=== PATIENT | female | born 1945 | race African-American/Black ===

== ENCOUNTER 2017-02-10 08:56 | Outpatient (CLI) | payer MEDICARE ==
[2017-02-10 12:32] LABS: Hemoglobin A1c 6.2 % (4.0-6.0)
== END 2017-02-10 08:57 | disposition home or self-care (01) ==
LOC: NAVSJIPCSP 08:56
PROVIDERS: ATTEND Internal Medicine
DX: E11.59 Type 2 diabetes mellitus with other circulatory complications (principal)
CPT/HCPCS: 36415; 83036

== ENCOUNTER 2017-02-25 10:08 | Outpatient (CLI) | payer MEDICARE ==
--- NOTE | 2017-02-25 14:03 | RAD ---
FOUR VIEWS LEFT RIB SERIES: Indication: Left sided rib pain. FINDINGS: No pneumothorax or contusion is demonstrated. No displaced left sided rib fracture is evident. IMPRESSION: No displaced left sided rib fracture. POS: [facility]
== END 2017-02-25 10:09 | disposition home or self-care (01) ==
LOC: NAV RAD 10:08
PROVIDERS: ATTEND Internal Medicine
DX: R07.89 Other chest pain (principal)

== ENCOUNTER 2017-05-06 09:37 | Outpatient (CLI) | payer MEDICARE ==
[2017-05-06 12:27] LABS: #Basophils 0.1 thou/uL (0.0-0.2); #Eosinphils 0.1 thou/uL (0.0-0.7); #Lymphocytes 2.3 thou/uL (1.20-3.40); #Monocytes 0.7 thou/uL (0.11-0.59); #Neutrophils 3.7 thou/uL (1.40-6.50); %Basophils 1.5 % (0.0-1.0); %Eosinophils 1.7 % (0.0-10.0); %Lymphocytes 32.8 % (21.0-51.0); %Monocytes 10.4 % (0.0-10.0); %Neutrophils 53.7 % (42.0-75.0); Hemoglobin 12.3 g/dL (12.0-16.0); Mean Corpuscular Hemoglobin 31.7 pg (27.0-31.0); Mean Corpuscular Volume 96.1 fl (81.0-99.0); Mean Platelet Volume 5.8 fL (7.4-10.4); Platelet Count 235 thou/uL (130-400); RBC Distribution Width 11.9 % (11.5-14.5); Red Blood Cell (RBC) Count 3.88 mill/uL (4.20-5.40); White Blood Cell (WBC) Count 6.9 thou/uL (4.8-10.8)
[2017-05-06 12:45] LABS: ALT (SGPT) 13 U/L (8-55); AST (SGOT) 18 U/L (5-34); Albumin 3.8 g/dL (3.4-4.8); Alkaline Phosphatase 73 U/L (40-150); Anion Gap 14 mmol/L (10-20); BUN (Urea Nitrogen) 15 mg/dL (9.8-20.1); Calc. Creatinine Clearance 0 mL/min (70-130); Calcium 8.7 mg/dL (7.8-10.44); Carbon Dioxide 25 mmol/L (23-31); Cardiac Risk 3.6 (Less than 4.5); Chloride 105 mmol/L (98-107); Cholesterol 174 mg/dl (< 200 Desired); Estimated GFR-MDRD Greater than 90; Globulin 2.8 g/dL (2.4-3.5); Glucose 135 mg/dL (83-110); HDL Cholesterol 48 mg/dL (>60 Neg Risk); LDL Cholesterol, Calculated 110 mg/dL; Potassium 4.4 mmol/L (3.5-5.1); Protein, Total 6.6 g/dL (6.0-8.3); Sodium 140 mmol/L (136-145); Triglycerides 78 mg/dL (Less than 150)
[2017-05-06 13:07] LABS: Hemoglobin A1c 6.2 % (4.0-6.0)
[2017-05-06 17:59] LABS: Creatinine, Urine 79.38 mg/dL (47-110); Microalbumin Urine Less than 1.0 mg/dL (0.5-50.0); Microalbumin/Creat Ratio 12.6 mg/g (Less than 30)
== END 2017-05-06 09:38 | disposition home or self-care (01) ==
LOC: NAVSJIPCSP 09:37
PROVIDERS: ATTEND Internal Medicine
DX: E78.5 Hyperlipidemia, unspecified (principal); E11.59 Type 2 diabetes mellitus with other circulatory complications; I10 Essential (primary) hypertension; Z95.1 Presence of aortocoronary bypass graft
CPT/HCPCS: 36415; 80053; 80061; 82043; 83036; 83880; 84443; 85025

== ENCOUNTER 2017-07-05 09:55 | Outpatient (CLI) | payer MEDICARE ==
--- NOTE | 2017-07-05 11:13 | RAD ---
THREE VIEWS LUMBAR SPINE: 07/05/2017 HISTORY: Low back pain with right hip radiculopathy. COMPARISON: None. FINDINGS: There is prominent facet hypertrophy at L3-L4, L4-L5, and L5-S1. There is disk space narrowing with degenerative endplate change and anterior osteophyte formation at L4-L5 and at L5-S1. There is ath erosclerotic calcification of the abdominal aorta. There is no acute fracture seen. IMPRESSION: Multilevel lower lumbar spine degenerative change with no acute osseous abnormality. Recommend MRI if radicular symptoms persist. POS: [facility]
--- NOTE | 2017-07-05 11:31 | RAD ---
THORACIC SPINE 3 VIEWS: HISTORY: Back pain after falling out of her rocker last week. FINDINGS: Degenerative changes are seen in the thoracic spine. No acute fracture or subluxation is identified . If there is focal tenderness or high clinical suspicion for injury to the thoracic spine, further ev aluation with MRI or CT scan would be helpful. POS: [facility]
== END 2017-07-05 09:56 | disposition home or self-care (01) ==
LOC: NAV RAD 09:55
DX: M54.6 Pain in thoracic spine (principal); M54.5 Low back pain; M47.814 Spondylosis without myelopathy or radiculopathy, thoracic region; M47.816 Spondylosis without myelopathy or radiculopathy, lumbar region
CPT/HCPCS: 72072; 72100

== ENCOUNTER 2017-09-10 08:52 | Outpatient (CLI) | payer MEDICARE ==
[2017-09-10] MEDS ORDERED: Iopamidol 370 76% 100 ML VIAL ONE (09:00)
--- NOTE | 2017-09-10 11:39 | CT ---
CT OF CHEST WITH CONTRAST CT OF ABDOMEN ONLY WITH CONTRAST: Date: 09/10/17 HISTORY: Chest pain. Abdominal pain and bloating with burning in right side. TECHNIQUE: 1. Multiple contiguous axial images were obtained in a CT of the chest with contrast. Coronal reform ats were performed. 2. Multiple contiguous axial images were obtained in a CT of the abdomen only with contrast. Coronal reformats were performed. FINDINGS: CT CHEST: The patient is status post CABG. The heart is mildly enlarged. No hilar or mediastinal lymphadenopath y seen. There are calcified left mediastinal lymph nodes. No suspicious pulmonary nodules are seen. No pneumothorax or pleural effusions are seen. Degenerative changes are seen in the spine. Chest wall soft tissues are unremarkable. CT ABDOMEN: There is a 3.9 cm mass in the left adrenal gland. This has an area of central low density which may r epresent an area of necrosis. There are calcifications in the liver from prior granulomatous disease. No suspicious liver lesions are seen. The gallbladder, kidneys, right adrenal gland, spleen, and seaman creas are unremarkable. No free air, free fluid, or stranding changes are seen in the abdomen. There are scattered diverticula in the left colon. The small bowel is unremarkable. No abdominal or p elvic lymphadenopathy seen. The abdominal wall soft tissues are unremarkable. Degenerative changes are seen in the spine. IMPRESSION: 1. No significant intrathoracic abnormality. 2. Left adrenal mass with central low density. This is nonspecific and could represent a primary adr enal neoplasm versus metastasis. Correlate with urinary catecholamines and with blood pressure. 3. Diverticulosis. POS: [facility]
== END 2017-09-10 08:53 | disposition home or self-care (01) ==
LOC: NAV CT 08:52
PROVIDERS: ATTEND Internal Medicine
DX: R07.89 Other chest pain (principal); E27.8 Other specified disorders of adrenal gland; K57.30 Diverticulosis of large intestine without perforation or abscess without bleeding
CPT/HCPCS: 71260; 74160

== ENCOUNTER 2018-01-03 10:44 | Outpatient (CLI) | payer MEDICARE | END 2018-01-03 10:45 | disposition home or self-care (01) | LOC: NAV ULT 10:44 | PROVIDERS: ATTEND Internal Medicine | DX: I49.9 Cardiac arrhythmia, unspecified (principal); I08.3 Combined rheumatic disorders of mitral, aortic and tricuspid valves | CPT/HCPCS: 93306 ==

== ENCOUNTER 2018-08-29 11:42 | Outpatient (CLI) | payer MEDICARE, OTHER ==
--- NOTE | 2018-08-29 12:08 | RAD ---
CHEST 2 VIEWS: HISTORY: Cough and congestion. COMPARISON: 04/12/2015. FINDINGS: Cardiac silhouette is unremarkable. Pulmonary vasculature upper limits of normal and accentuated by shallow inspiration. Mediastinum is midline with postoperative changes. No lobar consolidation or e vidence of pneumothorax. No pleural fluid visible. Degenerative changes thoracic spine. IMPRESSION: Chronic-type findings are stable. No active cardiopulmonary are abnormalities demonstrated. POS: [facility]
== END 2018-08-29 11:43 | disposition home or self-care (01) ==
LOC: NAV RAD 11:42
PROVIDERS: ATTEND Nurse Practitioner Adult Health
DX: R05 Cough (principal)
CPT/HCPCS: 71046

== ENCOUNTER 2019-03-14 10:39 | Emergency (ER) | payer MEDICARE ==
[2019-03-14 11:32] LABS: INR-International Normal Ratio 1.1; PTT 31.3 SEC (22.9-36.1)
--- NOTE | 2019-03-14 11:33 | CT ---
CT Brain WO Con HISTORY: Head injury COMPARISON: 04/04/2011 exam FINDINGS: The ventricular and cisternal system shows generalized atrophy. There is decreased attenuat ion to the periventricular white matter consistent with chronic ischemic white matter change. There are no signs of intracerebral hemorrhage or extra-axial fluid collections. The mastoid air cells and visualized sinuses are clear. There are 2 lytic appearing bone lesions involving the inner table of the skull within the right fron frank and right parietal bone a smaller lytic areas seen involving the left frontal bone and occipital bone. Given the history of breast cancer. 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 IMPRESSION: No acute intracranial abnormalities. Lytic bone lesions of the skull.
--- NOTE | 2019-03-14 11:37 | RAD ---
XR Chest 1 View Portable HISTORY: Fall. Weakness. Syncope. COMPARISON: None. FINDINGS: Heart size is within normal limits for portable technique with postop sternotomy changes. T he lungs are clear of any infiltrative process. No evidence of rib fractures. Surgical clips are seen in the left axilla. IMPRESSION: No active intrathoracic disease.
[2019-03-14 11:38] LABS: #Basophils 0.1 thou/uL (0.0-0.2); #Lymphocytes 0.8 thou/uL (1.20-3.40); #Monocytes 0.4 thou/uL (0.11-0.59); %Basophils 1.7 % (0.0-1.0); %Eosinophils 0.6 % (0.0-10.0); %Monocytes 11.6 % (0.0-10.0); %Neutrophils 62.1 % (42.0-75.0); Mean Corpuscular HGB CONC 32.9 g/dL (32.0-36.0); Mean Corpuscular Hemoglobin 37.5 pg (27.0-31.0); Mean Platelet Volume 5.5 fL (7.4-10.4); Platelet Count 277 thou/uL (130-400); RBC Distribution Width 13.3 % (11.5-14.5); Red Blood Cell (RBC) Count 2.94 mill/uL (4.20-5.40); White Blood Cell (WBC) Count 3.2 thou/uL (4.8-10.8)
[2019-03-14 11:39] LABS: Anisocytosis SLIGHT = 6-15 cells (100X) (0-5/hpf); Hypochromia SLIGHT = 6-15 cells (100X) (0-5/hpf); MDiff Complete? YES; Macrocytosis SLIGHT = 6-15 cells (100X) (0-5/hpf); Platelet Morphology Comment Appears Adequate
[2019-03-14 11:40] LABS: ALT (SGPT) 15 U/L (8-55); AST (SGOT) 24 U/L (5-34); Albumin 3.9 g/dL (3.4-4.8); Alkaline Phosphatase 49 U/L (40-150); Anion Gap 17 mmol/L (10-20); BUN (Urea Nitrogen) 18 mg/dL (9.8-20.1); Bilirubin, Total 0.7 mg/dL (0.2-1.2); Calc. Creatinine Clearance 0 mL/min (70-130); Calcium 8.9 mg/dL (7.8-10.44); Carbon Dioxide 22 mmol/L (23-31); Chloride 103 mmol/L (98-107); Estimated GFR-MDRD 69; Globulin 3.1 g/dL (2.4-3.5); Glucose 151 mg/dL (83-110); Potassium 4.3 mmol/L (3.5-5.1); Sodium 138 mmol/L (136-145)
[2019-03-14] MEDS ORDERED: Cyclobenzaprine 10 MG TAB ONE (12:05)
[2019-03-14 12:14] LABS: Bilirubin Negative (Negative); Blood, Urine Trace (Negative); Clarity Clear (Clear); Glucose, Urine (Dipstick) Negative (Negative); Leukocyte Small (Negative); Nitrite Negative (Negative); Protein, Urine (Dipstick) Negative (Neg-Trace); Urobilinogen 0.2 mg/dL (Less than 2)
[2019-03-14 12:29] LABS: Bacteria/HPF Rare-Few HPF (None Seen)
== END 2019-03-14 13:05 | disposition home or self-care (01) ==
LOC: NAV ERS 10:39
DX: S00.03XA Contusion of scalp, initial encounter (principal); N39.0 Urinary tract infection, site not specified; I10 Essential (primary) hypertension; I25.10 Atherosclerotic heart disease of native coronary artery without angina pectoris; E11.9 Type 2 diabetes mellitus without complications; Z79.899 Other long term (current) drug therapy; Z79.82 Long term (current) use of aspirin; W07.XXXA Fall from chair, initial encounter
CPT/HCPCS: 70450; 71045; 80053; 81003; 81015; 83880; 84484; 85025; 85610; 85730; 87086; 93005; 94760; 96360

== ENCOUNTER 2021-03-25 20:22 | Emergency (ER) | payer MEDICARE ==
[2021-03-25] MEDS ORDERED: Oxymetazoline HCl 0.05% (30 ML BOT) ONE (21:26)
[2021-03-25] MEDS ORDERED: Amoxicillin/Potassium Clav 875 MG TAB ONE (22:32)
== END 2021-03-25 22:35 | disposition home or self-care (01) ==
LOC: NAV ERS 20:22
DX: R04.0 Epistaxis (principal); E11.9 Type 2 diabetes mellitus without complications; E78.5 Hyperlipidemia, unspecified; E78.00 Pure hypercholesterolemia, unspecified; I10 Essential (primary) hypertension; Z79.899 Other long term (current) drug therapy
CPT/HCPCS: 30903